=== PATIENT | female | born 1950 | race Caucasian/White ===

== ENCOUNTER 2017-02-06 10:21 | Inpatient (IN) | payer MEDICARE, BC ==
[~2017-02-06] VITALS: Ht 162.6 cm; Wt 120.6 kg
[~2017-02-06 10:21] MED LIST: BACITRACIN 50,000 UNIT ONE; BUPIVACAINE/PF 0.5% ONE; EPINEPHRINE 1 MG/ML, 1ML ONE; THROMBIN 5,000 UNIT VIAL TP ONE
[2017-02-06 11:24] VITALS: BP 143/79
[2017-02-06 12:04] LABS: BLOOD UREA NITROGEN 10 mg/dL (7-18)
[2017-02-06 12:08] LABS: ASPARTATE AMINO TRANSFERASE 15 U/L (15-37)
[2017-02-06] MEDS ORDERED: FENTANYL PF 250 MCG/5ML ONE (12:36)
[2017-02-06] MEDS ORDERED: MIDAZOLAM 1 MG/ML, 2ML ONE (12:36)
[2017-02-06] MEDS ORDERED: KETAMINE 10 MG/ML, 20ML ONE (12:36)
[2017-02-06] MEDS ORDERED: ALPR1TAB10 SL (13:07)
[2017-02-06] MEDS ORDERED: DULO60CA7 PO (13:07)
[2017-02-06] MEDS ORDERED: HYDR-3307 PO (13:07)
[2017-02-06] MEDS ORDERED: LOSA100T6 PO (13:07)
[2017-02-06] MEDS ORDERED: GABA300C10 PO (13:07)
[2017-02-06] MEDS ORDERED: SPIR25TA3 PO (13:07)
[2017-02-06] MEDS ORDERED: BUPR150T73 PO (13:07)
[2017-02-06] MEDS ORDERED: LOVA40TA2 PO (13:07)
[2017-02-06] MEDS ORDERED: FLUT12HF2 INH (13:07)
[2017-02-06] MEDS ORDERED: ALBU8.5H8 INH (13:07)
[2017-02-06] MEDS ORDERED: POLY17PO5 PO (13:07)
[2017-02-06] MEDS ORDERED: METO25TA2 PO (13:07)
[2017-02-06] MEDS ORDERED: LIDOCAINE GEL 2%, 5ML ONE (14:14)
[2017-02-06] MEDS ORDERED: PHENYLEPHRINE 10 MG/ML ONE (14:18)
[2017-02-06] MEDS ORDERED: SUCCINYLCHOLINE 20 MG/ML, 10ML ONE (14:18)
[2017-02-06] MEDS ORDERED: PROPOFOL 50 ML ONE ×2 (15:06→16:01)
[2017-02-06] MEDS ORDERED: LIDOCAINE-MPF 2% ,5ML ONE ×3 (15:08→16:02)
[2017-02-06] MEDS ORDERED: BUPIVACAINE/PF-EPI 0.5% 1:200K IM ONE (15:23)
[2017-02-06] MEDS ORDERED: PROPOFOL 10 MG/ML, 20ML ONE (15:39)
[2017-02-06] MEDS ORDERED: CEFAZOLIN 1,000 MG ONE (15:39)
[2017-02-06] MEDS ORDERED: ONDANSETRON 2MG/ML, 2ML ONE ×4 (15:39→17:35)
[2017-02-06] MEDS ORDERED: DEXAMETHASONE 4 MG/ML, 1ML ONE (15:39)
[2017-02-06] MEDS ORDERED: HYDROmorphone 1 MG/ML, 1ML ONE ×2 (15:41→17:10)
[2017-02-06] MEDS ORDERED: HYDROmorphone 1 MG/ML, 1ML IV PRN (16:00)
[2017-02-06] MEDS ORDERED: ALBUTEROL/IPRATROPIUM 2.5MG/0.5MG, 3 ML NPPB PRN (16:00)
[2017-02-06] MEDS ORDERED: LORazepam 2 MG/ML, 1ML IVPush PRN (16:00)
[2017-02-06] MEDS ORDERED: PROMETHAZINE 25 MG/ML, 1ML IV PRN (16:00)
[2017-02-06] MEDS ORDERED: ONDANSETRON 2MG/ML, 2ML IVPush PRN ×2 (16:00→17:00)
[2017-02-06] MEDS ORDERED: ACETAMINOPHEN 325 MG TABLET PO PRN (16:00)
[2017-02-06] MEDS ORDERED: MIDAZOLAM 1 MG/ML, 2ML IV PRN (16:00)
[2017-02-06] MEDS ORDERED: hydrALAzine 20 MG/ML, 1ML IV PRN (16:00)
[2017-02-06] MEDS ORDERED: MEPERIDINE/PF 25MG/0.5ML IVPush PRN (16:00)
[2017-02-06] MEDS ORDERED: OXYcodone 5 MG/5 ML ORAL.SOL UDC PO PRN (16:00)
[2017-02-06] MEDS ORDERED: LABETALOL 5MG/ML, 20ML IV PRN (16:00)
[2017-02-06] MEDS ORDERED: DIAZEPAM 5 MG/ML, 2ML IVPush PRN (16:00)
[2017-02-06] MEDS ORDERED: ACETAMINOPHEN 650 MG/20.3 ML UDC ONE (16:59)
[2017-02-06] MEDS ORDERED: OXYcodone 5 MG/5 ML ORAL.SOL UDC ONE (16:59)
[2017-02-06] MEDS ORDERED: BISACODYL 10 MG SUPP PR PRN (17:00)
[2017-02-06] MEDS ORDERED: DIPHENHYDRAMINE 50 MG CAPSULE PO PRN (17:00)
[2017-02-06] MEDS ORDERED: PHARMACY MAY ADJ FOR RENAL FX MC PRN (17:00)
[2017-02-06] MEDS ORDERED: LABETALOL 5MG/ML, 20ML IVPush PRN (17:00)
[2017-02-06] MEDS ORDERED: HYDROcodone/APAP 5/325 TABLET PO PRN (17:00)
[2017-02-06] MEDS ORDERED: PROMETHAZINE 25 MG/ML, 1ML IM PRN (17:00)
[2017-02-06] MEDS ORDERED: DIPHENHYDRAMINE 50 MG/ML, 1ML IVPush PRN (17:00)
[2017-02-06] MEDS ORDERED: ACETAMINOPHEN 325 MG TABLET ONE (17:00)
[2017-02-06] MEDS ORDERED: FENTANYL PF 100 MCG/2ML ONE ×2 (17:10→17:35)
[2017-02-06] MEDS: FENTANYL PF 100 MCG/2ML IV PRN ×4 (17:13→17:50)
[2017-02-06] MEDS: D5%-0.9% NACL+KCL 20MEQ 1,000 ML IV SCH (18:03)
[2017-02-06] MEDS: CLINDAMYCIN PMX 600MG/50ML 50 ML IV SCH (18:03)
[2017-02-06 19:30] VITALS: BP 127/76
[2017-02-06] MEDS: morphine SULFATE 10 MG/ML, 1ML IVPush PRN ×3 (19:46→23:37)
[2017-02-06] MEDS: BUPROPION SR 150 MG TABLET PO SCH (20:04)
[2017-02-06] MEDS: GABAPENTIN 300 MG CAPSULE PO SCH (20:04)
[2017-02-06] MEDS: SODIUM CHLORIDE FLUSH 10ML SYR IVF SCH (20:04)
[2017-02-06] MEDS: LOVASTATIN 40 MG TABLET PO SCH (20:04)
[2017-02-06] MEDS: METOPROLOL SUCCINATE 25 MG TAB.ER.24H PO SCH (20:04)
[2017-02-06] MEDS: SALMETEROL INH SCH (21:00)
[2017-02-06] MEDS: ALBUTEROL HFA 90 MCG/SPRAY INH SCH (21:00)
[2017-02-06] MEDS ORDERED: ALBUTEROL SULFATE 2.5 MG/3 ML NPPB SCH (21:00)
[2017-02-06] MEDS: FLUTICASONE INH SCH (21:00)
[2017-02-06] MEDS: OXYcodone/APAP 5/325MG TABLET PO PRN (21:24)
[2017-02-06] MEDS: METHOCARBAMOL 750 MG TABLET PO PRN (23:37)
[2017-02-07 00:10] VITALS: BP 109/56
[2017-02-07] MEDS: CLINDAMYCIN PMX 600MG/50ML 50 ML IV SCH ×3 (01:41→18:13)
[2017-02-07] MEDS: OXYcodone/APAP 5/325MG TABLET PO PRN ×6 (01:41→23:56)
[2017-02-07 03:18] VITALS: BP 131/76
[2017-02-07] MEDS: morphine SULFATE 10 MG/ML, 1ML IVPush PRN ×4 (04:44→18:23)
[2017-02-07 05:31] LABS: HEMATOCRIT 38.5 % (34.6-47.8); HEMOGLOBIN 12.9 g/dL (11.7-16.4); WHITE BLOOD COUNT 10.5 x10^3/uL (3.4-10)
[2017-02-07 05:40] LABS: BLOOD UREA NITROGEN 9 mg/dL (7-18)
[2017-02-07] MEDS: D5%-0.9% NACL+KCL 20MEQ 1,000 ML IV SCH ×2 (05:45→15:00)
[2017-02-07] MEDS: ENOXAPARIN 40 MG/0.4 ML SQ SCH (05:58)
[2017-02-07] MEDS ORDERED: FLU VACC QS2017-18 (36MOS+) UP/PF 0.5 ML IM-VACC ONE (06:00)
[2017-02-07 07:22] VITALS: BP 108/71
[2017-02-07] MEDS: ALBUTEROL HFA 90 MCG/SPRAY INH SCH ×2 (09:00→21:00)
[2017-02-07] MEDS: FLUTICASONE INH SCH ×3 (09:00→21:00)
[2017-02-07] MEDS: ALBUTEROL SULFATE 2.5 MG/3 ML NPPB SCH ×2 (09:00→20:14)
[2017-02-07] MEDS: SALMETEROL INH SCH ×3 (09:00→21:00)
[2017-02-07] MEDS: METHOCARBAMOL 750 MG TABLET PO PRN (09:11)
[2017-02-07] MEDS: SPIRONOLACTONE 25 MG TABLET PO SCH (09:12)
[2017-02-07] MEDS: SODIUM CHLORIDE FLUSH 10ML SYR IVF SCH ×2 (09:12→20:07)
[2017-02-07] MEDS: GABAPENTIN 300 MG CAPSULE PO SCH ×2 (09:13→20:03)
[2017-02-07] MEDS: DULOXETINE 30 MG CAPSULE.DR PO SCH (09:13)
[2017-02-07] MEDS: BUPROPION SR 150 MG TABLET PO SCH ×2 (09:13→20:03)
[2017-02-07 12:59] VITALS: BP 108/59
[2017-02-07 19:03] VITALS: BP 99/58
[2017-02-07] MEDS: LOVASTATIN 40 MG TABLET PO SCH (20:03)
[2017-02-07] MEDS: LOSARTAN 50MG TABLET PO SCH (20:04)
[2017-02-07] MEDS: METOPROLOL SUCCINATE 25 MG TAB.ER.24H PO SCH (20:04)
[2017-02-07] MEDS: SENNA/DOCUSATE TABLET PO PRN (20:10)
[2017-02-08] MEDS: D5%-0.9% NACL+KCL 20MEQ 1,000 ML IV SCH ×3 (01:00→21:00)
[2017-02-08 01:46] VITALS: BP 100/55
[2017-02-08] MEDS: OXYcodone/APAP 5/325MG TABLET PO PRN ×5 (04:06→22:05)
[2017-02-08] MEDS: ENOXAPARIN 40 MG/0.4 ML SQ SCH (05:48)
[2017-02-08 05:56] LABS: HEMATOCRIT 32.7 % (34.6-47.8); HEMOGLOBIN 11.1 g/dL (11.7-16.4); WHITE BLOOD COUNT 8.4 x10^3/uL (3.4-10)
[2017-02-08 06:45] VITALS: BP 111/69
[2017-02-08] MEDS: FLUTICASONE INH SCH ×3 (09:00→21:00)
[2017-02-08] MEDS: ALBUTEROL SULFATE 2.5 MG/3 ML NPPB SCH ×3 (09:00→21:25)
[2017-02-08] MEDS: ALBUTEROL HFA 90 MCG/SPRAY INH SCH ×2 (09:00→21:00)
[2017-02-08] MEDS: SALMETEROL INH SCH ×3 (09:00→21:00)
[2017-02-08] MEDS: METHOCARBAMOL 750 MG TABLET PO PRN ×2 (09:23→21:01)
[2017-02-08] MEDS: GABAPENTIN 300 MG CAPSULE PO SCH ×2 (09:23→21:01)
[2017-02-08] MEDS: SPIRONOLACTONE 25 MG TABLET PO SCH (09:23)
[2017-02-08] MEDS: BUPROPION SR 150 MG TABLET PO SCH ×2 (09:23→21:01)
[2017-02-08] MEDS: SODIUM CHLORIDE FLUSH 10ML SYR IVF SCH ×2 (09:24→21:08)
[2017-02-08] MEDS: DULOXETINE 30 MG CAPSULE.DR PO SCH (09:26)
[2017-02-08 12:20] VITALS: BP 110/71
[2017-02-08] MEDS: morphine SULFATE 10 MG/ML, 1ML IVPush PRN ×2 (14:39→19:36)
[2017-02-08 19:05] VITALS: BP 140/86
[2017-02-08] MEDS: LOVASTATIN 40 MG TABLET PO SCH (21:01)
[2017-02-08] MEDS: SENNA/DOCUSATE TABLET PO PRN (21:01)
[2017-02-08] MEDS: METOPROLOL SUCCINATE 25 MG TAB.ER.24H PO SCH (21:01)
[2017-02-08] MEDS: LOSARTAN 50MG TABLET PO SCH (21:01)
[2017-02-09] MEDS: D5%-0.9% NACL+KCL 20MEQ 1,000 ML IV SCH ×3 (00:15→23:58)
[2017-02-09] MEDS: OXYcodone/APAP 5/325MG TABLET PO PRN ×5 (01:55→23:51)
[2017-02-09 03:09] VITALS: BP 119/73
[2017-02-09 05:09] LABS: HEMATOCRIT 33.8 % (34.6-47.8); HEMOGLOBIN 11.6 g/dL (11.7-16.4); WHITE BLOOD COUNT 7.3 x10^3/uL (3.4-10)
[2017-02-09] MEDS: ENOXAPARIN 40 MG/0.4 ML SQ SCH (05:42)
[2017-02-09] MEDS: METHOCARBAMOL 750 MG TABLET PO PRN (05:52)
[2017-02-09] MEDS: ALBUTEROL SULFATE 2.5 MG/3 ML NPPB SCH ×2 (07:15→21:13)
[2017-02-09 07:30] VITALS: BP 126/82
[2017-02-09] MEDS: MAGNESIUM HYDROXIDE 8%, 30ML UDC PO PRN (08:07)
[2017-02-09] MEDS: GABAPENTIN 300 MG CAPSULE PO SCH ×3 (08:08→21:45)
[2017-02-09] MEDS: DULOXETINE 30 MG CAPSULE.DR PO SCH (08:08)
[2017-02-09] MEDS: SENNA/DOCUSATE TABLET PO PRN (08:08)
[2017-02-09] MEDS: SPIRONOLACTONE 25 MG TABLET PO SCH (08:08)
[2017-02-09] MEDS: LOSARTAN 50MG TABLET PO SCH ×2 (08:09→21:04)
[2017-02-09] MEDS: SODIUM CHLORIDE FLUSH 10ML SYR IVF SCH ×2 (08:09→20:59)
[2017-02-09] MEDS: BUPROPION SR 150 MG TABLET PO SCH ×2 (08:09→21:04)
[2017-02-09] MEDS: ALBUTEROL HFA 90 MCG/SPRAY INH SCH (09:00)
[2017-02-09] MEDS: SALMETEROL INH SCH ×3 (09:00→20:59)
[2017-02-09] MEDS: FLUTICASONE INH SCH ×3 (09:00→20:59)
[2017-02-09] MEDS ORDERED: METHOCARBAMOL 750 MG TABLET PO PRN (09:30)
[2017-02-09 13:30] VITALS: BP 132/79
[2017-02-09] MEDS: morphine SULFATE 10 MG/ML, 1ML IVPush PRN ×2 (14:19→20:09)
[2017-02-09 18:51] VITALS: BP 130/83
[2017-02-09] MEDS ORDERED: ALBUTEROL SULFATE 2.5 MG/3 ML NPPB PRN (19:00)
[2017-02-09 19:34] VITALS: BP 106/67
[2017-02-09] MEDS: METOPROLOL SUCCINATE 25 MG TAB.ER.24H PO SCH (21:04)
[2017-02-09] MEDS: LOVASTATIN 40 MG TABLET PO SCH (21:04)
[2017-02-10 00:34] VITALS: BP 137/85
[2017-02-10] MEDS: morphine SULFATE 10 MG/ML, 1ML IVPush PRN ×4 (04:25→14:58)
[2017-02-10 06:06] LABS: HEMATOCRIT 36.7 % (34.6-47.8); HEMOGLOBIN 12.3 g/dL (11.7-16.4); WHITE BLOOD COUNT 7.2 x10^3/uL (3.4-10)
[2017-02-10 06:18] LABS: BLOOD UREA NITROGEN 6 mg/dL (7-18)
[2017-02-10 07:09] VITALS: BP 146/83
[2017-02-10] MEDS: ALBUTEROL SULFATE 2.5 MG/3 ML NPPB SCH ×2 (07:19→21:00)
[2017-02-10] MEDS: SALMETEROL INH SCH ×3 (07:49→21:00)
[2017-02-10] MEDS: DULOXETINE 30 MG CAPSULE.DR PO SCH (07:49)
[2017-02-10] MEDS: FLUTICASONE INH SCH ×3 (07:49→21:00)
[2017-02-10] MEDS: BUPROPION SR 150 MG TABLET PO SCH (07:49)
[2017-02-10] MEDS: SPIRONOLACTONE 25 MG TABLET PO SCH (07:49)
[2017-02-10] MEDS: GABAPENTIN 300 MG CAPSULE PO SCH ×2 (07:49→15:17)
[2017-02-10] MEDS: SODIUM CHLORIDE FLUSH 10ML SYR IVF SCH ×2 (07:50→21:00)
[2017-02-10] MEDS ORDERED: DEXAMETHASONE 4 MG/ML, 1ML IV ONE (09:00)
[2017-02-10] MEDS: METHOCARBAMOL 750 MG in DEXTROSE 5% 100 ML IV SCH ×3 (09:15→21:30)
[2017-02-10 13:00] VITALS: BP 150/90
[2017-02-10] MEDS: D5%-0.9% NACL+KCL 20MEQ 1,000 ML IV SCH ×2 (13:00→23:00)
[2017-02-10] MEDS ORDERED: DEXAMETHASONE 4 MG/ML, 1ML ONE (17:11)
[2017-02-10] MEDS ORDERED: FENTANYL PF 250 MCG/5ML ONE (17:11)
[2017-02-10] MEDS ORDERED: PROPOFOL 10 MG/ML, 20ML ONE (17:11)
[2017-02-10] MEDS ORDERED: ROCURONIUM 10 MG/ML,10ML ONE (17:11)
[2017-02-10] MEDS ORDERED: CEFAZOLIN 1,000 MG ONE (17:11)
[2017-02-10] MEDS ORDERED: MIDAZOLAM 1 MG/ML, 2ML ONE (17:11)
[2017-02-10] MEDS ORDERED: ONDANSETRON 2MG/ML, 2ML ONE (17:11)
[2017-02-10] MEDS ORDERED: LABETALOL 5MG/ML, 20ML IV PRN (19:30)
[2017-02-10] MEDS ORDERED: PROMETHAZINE 25 MG/ML, 1ML IV PRN (19:30)
[2017-02-10] MEDS ORDERED: ALBUTEROL SULFATE 2.5 MG/3 ML NPPB PRN (19:30)
[2017-02-10] MEDS ORDERED: OXYcodone 5 MG/5 ML ORAL.SOL UDC PO PRN ×2 (19:30→21:00)
[2017-02-10] MEDS ORDERED: DIAZEPAM 5 MG/ML, 2ML IVPush PRN (19:30)
[2017-02-10] MEDS ORDERED: ONDANSETRON 2MG/ML, 2ML IVPush PRN ×2 (19:30→20:00)
[2017-02-10] MEDS ORDERED: morphine SULFATE 10 MG/ML, 1ML IV PRN (19:30)
[2017-02-10] MEDS ORDERED: hydrALAzine 20 MG/ML, 1ML IV PRN (19:30)
[2017-02-10] MEDS ORDERED: FENTANYL PF 100 MCG/2ML IV PRN ×2 (19:30→21:00)
[2017-02-10] MEDS ORDERED: ACETAMINOPHEN 325 MG TABLET PO PRN ×2 (19:30→21:00)
[2017-02-10] MEDS ORDERED: MEPERIDINE/PF 25MG/0.5ML IVPush PRN (19:30)
[2017-02-10] MEDS ORDERED: PHARMACY MAY ADJ FOR RENAL FX MC PRN (20:00)
[2017-02-10] MEDS ORDERED: HYDROcodone/APAP 5/325 TABLET PO PRN (20:00)
[2017-02-10] MEDS ORDERED: PROMETHAZINE 25 MG/ML, 1ML IM PRN (20:00)
[2017-02-10] MEDS ORDERED: DIPHENHYDRAMINE 50 MG/ML, 1ML IVPush PRN (20:00)
[2017-02-10] MEDS: NS + 20MEQ KCL 1,000 ML IV SCH (20:00)
[2017-02-10] MEDS ORDERED: BISACODYL 10 MG SUPP PR PRN (20:00)
[2017-02-10] MEDS ORDERED: SENNA/DOCUSATE TABLET PO PRN (20:00)
[2017-02-10] MEDS ORDERED: HYDROcodone/APAP 10/325 MG TABLET PO PRN (20:00)
[2017-02-10] MEDS ORDERED: OXYcodone/APAP 5/325MG TABLET PO PRN (20:00)
[2017-02-10] MEDS ORDERED: morphine SULFATE 10 MG/ML, 1ML IVPush PRN (20:00)
[2017-02-10] MEDS ORDERED: ACETAMINOPHEN 650 MG/20.3 ML UDC ONE (20:09)
[2017-02-10] MEDS ORDERED: OXYcodone 5 MG/5 ML ORAL.SOL UDC ONE (20:10)
[2017-02-10] MEDS ORDERED: FENTANYL PF 100 MCG/2ML ONE (20:44)
[2017-02-10] MEDS: LOVASTATIN 40 MG TABLET PO SCH (21:00)
[2017-02-10] MEDS ORDERED: HYDROmorphone 1 MG/ML, 1ML IV PRN (21:00)
[2017-02-10 23:04] VITALS: BP 116/62
[2017-02-11] MEDS: NS + 20MEQ KCL 1,000 ML IV SCH ×2 (00:07→14:00)
[2017-02-11] MEDS: CEFAZOLIN PMX 1GM/50ML 50 ML IVPB SCH ×2 (00:08→08:08)
[2017-02-11] MEDS: LOSARTAN 50MG TABLET PO SCH ×2 (00:09→22:46)
[2017-02-11] MEDS: GABAPENTIN 300 MG CAPSULE PO SCH ×4 (00:10→22:46)
[2017-02-11] MEDS: BUPROPION SR 150 MG TABLET PO SCH ×3 (00:11→22:47)
[2017-02-11] MEDS: METOPROLOL SUCCINATE 25 MG TAB.ER.24H PO SCH ×2 (00:11→21:00)
[2017-02-11] MEDS: METHOCARBAMOL 750 MG in DEXTROSE 5% 100 ML IV SCH ×4 (03:15→23:05)
[2017-02-11 03:45] VITALS: BP 113/60
[2017-02-11 05:19] LABS: HEMATOCRIT 33.7 % (34.6-47.8); HEMOGLOBIN 11.4 g/dL (11.7-16.4); WHITE BLOOD COUNT 9.2 x10^3/uL (3.4-10)
[2017-02-11 07:10] VITALS: BP 102/55
[2017-02-11] MEDS: DULOXETINE 30 MG CAPSULE.DR PO SCH (08:15)
[2017-02-11] MEDS: SPIRONOLACTONE 25 MG TABLET PO SCH ×2 (08:15→09:00)
[2017-02-11] MEDS: SODIUM CHLORIDE FLUSH 10ML SYR IVF SCH ×2 (08:16→21:00)
[2017-02-11] MEDS: SALMETEROL INH SCH ×3 (09:00→21:00)
[2017-02-11] MEDS: D5%-0.9% NACL+KCL 20MEQ 1,000 ML IV SCH ×2 (09:00→15:30)
[2017-02-11] MEDS: FLUTICASONE INH SCH ×3 (09:00→21:00)
[2017-02-11] MEDS: ALBUTEROL SULFATE 2.5 MG/3 ML NPPB SCH ×2 (09:00→21:00)
[2017-02-11 19:44] VITALS: BP 104/65
[2017-02-11] MEDS: LOVASTATIN 40 MG TABLET PO SCH (22:47)
[2017-02-12] VITALS (10 sets, daily range): BP systolic 107–134; BP diastolic 55–81
[2017-02-12] MEDS: METHOCARBAMOL 750 MG in DEXTROSE 5% 100 ML IV SCH ×3 (04:55→18:28)
[2017-02-12] MEDS: D5%-0.9% NACL+KCL 20MEQ 1,000 ML IV SCH ×2 (04:57→05:24)
[2017-02-12] MEDS: NS + 20MEQ KCL 1,000 ML IV SCH ×2 (05:25→20:20)
[2017-02-12 05:26] LABS: HEMATOCRIT 29.1 % (34.6-47.8); HEMOGLOBIN 9.9 g/dL (11.7-16.4); WHITE BLOOD COUNT 8.6 x10^3/uL (3.4-10)
[2017-02-12] MEDS: SPIRONOLACTONE 25 MG TABLET PO SCH (08:23)
[2017-02-12] MEDS: POLYETHYLENE GLYCOL 17 GM PACKET PO SCH (08:23)
[2017-02-12] MEDS: BUPROPION SR 150 MG TABLET PO SCH ×2 (08:23→22:40)
[2017-02-12] MEDS: GABAPENTIN 300 MG CAPSULE PO SCH ×3 (08:23→22:39)
[2017-02-12] MEDS: FLUTICASONE INH SCH ×3 (08:24→21:00)
[2017-02-12] MEDS: SALMETEROL INH SCH ×3 (08:24→21:00)
[2017-02-12] MEDS: DULOXETINE 30 MG CAPSULE.DR PO SCH (08:24)
[2017-02-12] MEDS: SODIUM CHLORIDE FLUSH 10ML SYR IVF SCH ×2 (08:24→21:00)
[2017-02-12] MEDS: ALBUTEROL SULFATE 2.5 MG/3 ML NPPB SCH ×2 (09:10→20:12)
[2017-02-12] MEDS: CYCLOBENZAPRINE 10 MG TABLET PO PRN ×2 (10:55→22:40)
[2017-02-12] MEDS: OXYcodone IR 5MG TABLET PO PRN ×3 (10:55→22:40)
[2017-02-12] MEDS: LOSARTAN 50MG TABLET PO SCH (22:38)
[2017-02-12] MEDS: METOPROLOL SUCCINATE 25 MG TAB.ER.24H PO SCH (22:39)
[2017-02-12] MEDS: LOVASTATIN 40 MG TABLET PO SCH (22:40)
[2017-02-13] VITALS: BP 133/98
[2017-02-13 00:27] VITALS: BP 97/48
[2017-02-13] MEDS: D5%-0.9% NACL+KCL 20MEQ 1,000 ML IV SCH ×3 (01:00→21:00)
[2017-02-13 01:59] VITALS: BP 100/57
[2017-02-13] MEDS: METHOCARBAMOL 750 MG in DEXTROSE 5% 100 ML IV SCH ×2 (04:51)
[2017-02-13 05:30] LABS: HEMATOCRIT 28.3 % (34.6-47.8); HEMOGLOBIN 9.6 g/dL (11.7-16.4); WHITE BLOOD COUNT 7.9 x10^3/uL (3.4-10)
[2017-02-13] MEDS: OXYcodone IR 5MG TABLET PO PRN ×4 (06:10→22:42)
[2017-02-13 07:06] VITALS: BP 118/50
[2017-02-13] MEDS: POLYETHYLENE GLYCOL 17 GM PACKET PO SCH (08:13)
[2017-02-13] MEDS: DULOXETINE 30 MG CAPSULE.DR PO SCH (08:14)
[2017-02-13] MEDS: GABAPENTIN 300 MG CAPSULE PO SCH ×3 (08:14→22:41)
[2017-02-13] MEDS: BUPROPION SR 150 MG TABLET PO SCH ×2 (08:15→23:09)
[2017-02-13] MEDS: SPIRONOLACTONE 25 MG TABLET PO SCH (08:15)
[2017-02-13] MEDS: SODIUM CHLORIDE FLUSH 10ML SYR IVF SCH ×2 (08:16→21:00)
[2017-02-13] MEDS: FLUTICASONE INH SCH ×3 (08:16→21:00)
[2017-02-13] MEDS: SALMETEROL INH SCH ×3 (08:16→21:00)
[2017-02-13] MEDS: NS + 20MEQ KCL 1,000 ML IV SCH ×2 (10:26→23:00)
[2017-02-13 13:05] VITALS: BP 124/76
[2017-02-13] MEDS: MAGNESIUM HYDROXIDE 8%, 30ML UDC PO PRN (16:32)
[2017-02-13] MEDS: CYCLOBENZAPRINE 10 MG TABLET PO PRN (16:32)
[2017-02-13 19:56] VITALS: BP 114/72
[2017-02-13] MEDS: LOVASTATIN 40 MG TABLET PO SCH (22:41)
[2017-02-13] MEDS: LOSARTAN 50MG TABLET PO SCH (22:41)
[2017-02-13] MEDS: METOPROLOL SUCCINATE 25 MG TAB.ER.24H PO SCH (23:09)
[2017-02-14 01:34] VITALS: BP 99/61
[2017-02-14] MEDS: METHOCARBAMOL 750 MG TABLET PO PRN ×2 (04:04→10:29)
[2017-02-14] MEDS: OXYcodone IR 5MG TABLET PO PRN ×3 (04:16→13:00)
[2017-02-14 05:18] LABS: HEMATOCRIT 29.2 % (34.6-47.8); HEMOGLOBIN 10.2 g/dL (11.7-16.4); WHITE BLOOD COUNT 8.1 x10^3/uL (3.4-10)
[2017-02-14 07:38] VITALS: BP 116/77
[2017-02-14] MEDS: FLUTICASONE INH SCH ×2 (07:59→16:38)
[2017-02-14] MEDS: DULOXETINE 30 MG CAPSULE.DR PO SCH (07:59)
[2017-02-14] MEDS: SALMETEROL INH SCH ×2 (07:59→16:38)
[2017-02-14] MEDS: BUPROPION SR 150 MG TABLET PO SCH (08:00)
[2017-02-14] MEDS: POLYETHYLENE GLYCOL 17 GM PACKET PO SCH (08:00)
[2017-02-14] MEDS: GABAPENTIN 300 MG CAPSULE PO SCH ×2 (08:00→16:34)
[2017-02-14] MEDS: SPIRONOLACTONE 25 MG TABLET PO SCH (08:00)
[2017-02-14] MEDS ORDERED: MAGNESIUM CITRATE 300ML ORAL SOL ONE (08:56)
[2017-02-14] MEDS ORDERED: MAGNESIUM CITRATE 300ML ORAL SOL PO PRN (09:00)
[2017-02-14] MEDS ORDERED: CYCL5TAB PO (10:18)
[2017-02-14] MEDS ORDERED: DIPH25CA61 PO (10:19)
[2017-02-14] MEDS ORDERED: OXYC5TAB3 PO (10:20)
[2017-02-14] MEDS ORDERED: SENN-1 PO (10:21)
[2017-02-14 13:45] VITALS: BP 110/76
[2017-02-14] MEDS: CYCLOBENZAPRINE 10 MG TABLET PO PRN (15:19)
[2017-02-14] MEDS: OXYcodone/APAP 5/325MG TABLET PO PRN (16:34)
[2017-02-14] MEDS ORDERED: KETOROLAC 30 MG/1 ML ONE (17:16)
[2017-02-14 17:24] VITALS: BP 107/67
[2017-02-14] MEDS ORDERED: KETOROLAC 30 MG/1 ML IM PRN ×2 (17:30)
== END 2017-02-14 18:10 | DRG 454 ==
LOC: 4NOR 10:21
PROVIDERS: ADMIT Neurological Surgery; ATTEND Neurological Surgery
PROC: 4A11X4G Monitoring of Peripheral Nervous Electrical Activity, Intraoperative, External Approach (ICD-10-PCS; 2017-02-06)
PROC: 0QB30ZZ Excision of Left Pelvic Bone, Open Approach (ICD-10-PCS; 2017-02-06)
PROC: 0SG04A0 Fusion of Lumbar Vertebral Joint with Interbody Fusion Device, Anterior Approach, Anterior Column, Percutaneous Endoscopic Approach (ICD-10-PCS; principal; 2017-02-06 15:00)
PROC: 0SG0071 Fusion of Lumbar Vertebral Joint with Autologous Tissue Substitute, Posterior Approach, Posterior Column, Open Approach (ICD-10-PCS; 2017-02-10)
PROC: 01NR0ZZ Release Sacral Nerve, Open Approach (ICD-10-PCS; 2017-02-10)
PROC: 01NB0ZZ Release Lumbar Nerve, Open Approach (ICD-10-PCS; 2017-02-10)
PROC: 4A11X4G Monitoring of Peripheral Nervous Electrical Activity, Intraoperative, External Approach (ICD-10-PCS; 2017-02-10)
DX: M51.16 Intervertebral disc disorders with radiculopathy, lumbar region (principal); Z68.41 Body mass index [BMI] 40.0-44.9, adult; W18.39XA Other fall on same level, initial encounter; M48.061 Spinal stenosis, lumbar region without neurogenic claudication; Z88.0 Allergy status to penicillin; Z88.2 Allergy status to sulfonamides; Z88.8 Allergy status to other drugs, medicaments and biological substances; Y93.89 Activity, other specified; Y92.89 Other specified places as the place of occurrence of the external cause; Y99.8 Other external cause status; G89.29 Other chronic pain; M43.16 Spondylolisthesis, lumbar region
CPT/HCPCS: 36415; 72100; 72131; 80048; 80053; 82040; 85025; 85610; 86850; 86900; 90686; 94640; C1713; C1767; C1776; J0171; J0690; J1100; J1170; J1650; J1885; J2250; J2270; J2405; J2704; J3010; J3480; J3490; J7613; C1760; C1762; J0330; J2370; J2800